=== PATIENT | female | born 1975 | race Caucasian/White ===

== ENCOUNTER 2021-04-11 07:38 | Day surgery (SDC) | payer OTHER ==
[~2021-04-11] VITALS: Ht 154.9 cm; Wt 61.6 kg
[~2021-04-11 07:38] MED LIST: EPINEPHRINE 1 MG/ML, 1ML ONE; LIDOCAINE/PF 1%, 30ML ONE
[2021-04-11 08:21] VITALS: BP 96/64
[2021-04-11] MEDS ORDERED: DEXT10TA7 PO (08:27)
[2021-04-11] MEDS ORDERED: CHLORHEXIDINE 15 ML UDC PO ONE (08:30)
[2021-04-11] MEDS ORDERED: LACTATED RINGERS 1,000 ML IV SCH (08:30)
[2021-04-11 08:31] LABS: HCG UR SG 1.013 (1.003-1.030)
[2021-04-11] MEDS ORDERED: MEPERIDINE/PF 25MG/0.5ML IVPush PRN (09:00)
[2021-04-11] MEDS ORDERED: LABETALOL 5MG/ML, 20ML IV PRN (09:00)
[2021-04-11] MEDS ORDERED: PROMETHAZINE 25 MG/ML, 1ML IVPush PRN (09:00)
[2021-04-11] MEDS ORDERED: DIPHENHYDRAMINE 50 MG/ML, 1ML IVPush PRN (09:00)
[2021-04-11] MEDS ORDERED: HYDROmorphone 1 MG/ML, 1ML INJ IVPush PRN (09:00)
[2021-04-11] MEDS ORDERED: HALOPERIDOL 5 MG/ML IV PRN (09:00)
[2021-04-11] MEDS ORDERED: OXYcodone 5 MG/5 ML ORAL.SOL UDC PO PRN (09:00)
[2021-04-11] MEDS ORDERED: hydrALAzine 20 MG/ML, 1ML IV PRN (09:00)
[2021-04-11] MEDS ORDERED: ACETAMINOPHEN 325 MG TABLET PO PRN (09:00)
[2021-04-11] MEDS ORDERED: MIDAZOLAM 1 MG/ML, 2ML ONE (09:29)
[2021-04-11] MEDS ORDERED: FENTANYL PF 100 MCG/2ML ONE ×2 (09:29→10:17)
[2021-04-11] MEDS ORDERED: GLYCOPYRROLATE 0.2MG/1ML, 5ML ONE (09:53)
[2021-04-11] MEDS ORDERED: NEOSTIGMINE 1 MG/ML, 10ML ONE (09:53)
[2021-04-11] MEDS ORDERED: ROCURONIUM 10MG/ML,5ML ONE (09:53)
[2021-04-11] MEDS ORDERED: DEXAMETHASONE 4 MG/ML, 1ML ONE (09:53)
[2021-04-11] MEDS ORDERED: ONDANSETRON 2MG/ML, 2ML ONE (09:53)
[2021-04-11] MEDS ORDERED: PROPOFOL 10 MG/ML, 20ML ONE (09:53)
[2021-04-11] MEDS ORDERED: CEFAZOLIN 1,000 MG ONE (09:53)
[2021-04-11] MEDS ORDERED: SUCCINYLCHOLINE 20 MG/ML, 10ML ONE (09:53)
[2021-04-11] MEDS ORDERED: ACETAMINOPHEN 650 MG/20.3 ML UDC ONE (10:16)
[2021-04-11] MEDS ORDERED: OXYcodone 5 MG/5 ML ORAL.SOL UDC ONE (10:17)
[2021-04-11] MEDS: FENTANYL PF 100 MCG/2ML IV PRN ×2 (10:18→10:26)
== END 2021-04-11 11:50 | disposition home or self-care (01) ==
LOC: OUT 07:38
PROVIDERS: ATTEND Otolaryngology
DX: J35.3 Hypertrophy of tonsils with hypertrophy of adenoids (principal); J35.1 Hypertrophy of tonsils; F12.90 Cannabis use, unspecified, uncomplicated; Z87.891 Personal history of nicotine dependence; Z79.899 Other long term (current) drug therapy; Z20.822 Contact with and (suspected) exposure to COVID-19
CPT/HCPCS: 42826; 81025; 87635; 88305; J0171; J0330; J1100; J2250; J2405; J2704; J3010; J7120; J0690; J2710